=== PATIENT | female | born 1980 | race Caucasian/White ===

== ENCOUNTER 2019-10-25 14:13 | Emergency (ER) | payer OTHER ==
[~2019-10-25] VITALS: Ht 160 cm; Wt 54.4 kg
[2019-10-25] MEDS ORDERED: LAMICTAL200 MG PO (14:33)
[2019-10-25] MEDS ORDERED: ADDERALL 15 MG15 MG PO (14:34)
[2019-10-25] MEDS ORDERED: NORCO 5-325 TA1 EACH PO (16:26)
== END 2019-10-25 16:47 | disposition home or self-care (01) ==
LOC: ED 14:13
DX: S80.12XA Contusion of left lower leg, initial encounter (principal); W01.0XXA Fall on same level from slipping, tripping and stumbling without subsequent striking against object, initial encounter
CPT/HCPCS: 73552; 73700; 96372; 99284-25; J1885; Q9967